=== PATIENT | female | born 1955 | race Caucasian/White ===

== ENCOUNTER 2017-05-26 20:52 | Emergency (ER) | payer OTHER ==
--- NOTE | 2017-05-26 21:47 | ERNOTE ---
Date of Service: 05/26/17 Time Seen by Provider: 05/26/17 21:41 Stated Complaint: COUGH. SORE RIBS. Presenting Symptoms:: cough, other - body aches, malaise Source: patient Immunizations: IMMUNIZATION HX Immunizations Up to Date Yes History of Influenza Vaccine Yes Allergies/Adverse Reactions: Allergies No Known Allergies Allergy (Unverified 05/26/17 21:15) Home Medications: HOME MEDICATIONS Thyroid,Pork [[place] Thyroid] 120 mg PO DAILY 05/26/17 [Last Taken Unknown] - History of Present Ilness Narrative: Generally feeling ill, with complaints of body aches, coughing, sinus congestion x 3 days; without fevers or chills. Denies N/V/D, or dizziness. Has been using Tylenol twice per day. Date (Duration): 05/26/17 Time (Timing): 22:00 Timing: constant Severity: moderate Frequency/Possible Cause: Reports: no prior episodes Modifying Factors - Improves: Reports: nothing Modifying Factors - Worsens: Reports: nothing Review of Systems - Review of Systems Constitutional: Present: See HPI EYE: Present: no symptoms reported ENT: Present: See HPI Respiratory: Present: See HPI Cardiology: Present: no symptoms reported Gastrointestinal/Abdominal: Present: no symptoms reported Genitourinary: Present: no symptoms reported Musculoskeletal: Present: no symptoms reported Skin: Present: no symptoms reported Neurological: Present: no symptoms reported Endocrine: Present: no symptoms reported Hematologic/Lymphatic: Present: no symptoms reported Psych: Present: no symptoms reported - Patient's Past Medical History Patient History - Medical: Hypothyroidism Patient History - Cardiac/Respiratory: No pertinent hx Patient History - Surgical Procedures: Appendectomy, Hysterectomy Patient History - Other: None - Social History Living Situations: home Smoking Status: Never smoker Patient requests Smoking Cessation Consult: No Initiate information on Smoking Cessation: No Alcohol Use: none Drug Use: none - Immunizations Immunizations Up to Date: Yes History of Influenza Vaccine: Yes Physical Exam - Physical Exam General Appearance: Present: no apparent distress Head Exam: Present: normal inspection Eye Exam: Normal inspection: bilateral, PERRL: bilateral, EOMI: bilateral Ears, Nose, Throat: Present: normal ENT inspection Neck: Present: normal inspection Respiratory: Present: no respiratory distress Cardiovascular/Chest: Present: regular rate, rhythm Gastrointestinal/Abdominal: Present: nontender Back Exam: Present: normal inspection Extremity Exam: Present: normal inspection Neurological Exam: Present: alert, oriented, 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 Vital Signs: Vital Signs 05/26/17 21:11 Temperature 36 C L Pulse Rate 92 Respiratory 18 Rate Blood Pressure 146/78 O2 Sat by Pulse 98 Oximetry - Progress/Reassessment Chief Complaint: Upper Respiratory Symptoms Progress:: Improved Progress Note-Subjective: 05/26/17 22:04 Given NS, ketorlac 15 mg IV and Tylenol 1 gram po. Departure Clinical Impression: Viral syndrome - Departure Disposition: Home self-care Condition: Good Instructions: Rehydration, Adult, Viral Respiratory Infection, [id number] Print Language: Kinyarwanda Referrals: Malia Casey REGISTERED NURSE NURSERY [Primary Care Provider] -
[2017-05-26] MEDS ORDERED: NORMAL SALINE 1,000 ML IV ONE (21:56)
[2017-05-26] MEDS ORDERED: KETOROLAC TROMETHAMINE 30 MG/ML VIAL IV ONE (21:56)
[2017-05-26] MEDS ORDERED: ACETAMINOPHEN 500 MG TABLET PO ONE (21:56)
[2017-05-26] MEDS ORDERED: KETOROLAC TROMETHAMINE 30 MG/ML VIAL ONE (22:13)
[2017-05-26 23:01] VITALS: BP 110/43
== END 2017-05-26 23:08 | disposition home or self-care (01) ==
LOC: ER 20:52
DX: B34.9 Viral infection, unspecified (principal)

== ENCOUNTER 2018-11-18 14:54 | Inpatient (IN) ==
[2018-11-18] MEDS ORDERED: MORPHINE SULFATE 4 MG/ML SYRG IV ONE ×2 (15:08→18:33)
[2018-11-18] MEDS ORDERED: NORMAL SALINE 1,000 ML IV ONE ×2 (15:08→16:50)
[2018-11-18] MEDS ORDERED: PROCHLORPERAZINE EDISYLATE 5 MG/ML VIAL IV ONE (15:09)
[2018-11-18] MEDS ORDERED: diphenhydrAMINE HCL 50 MG/ML VIAL IV ONE (15:09)
[2018-11-18] MEDS ORDERED: DIATRIZOATE MEGLUMINE, SODIUM 30 ML BTL PO ONE (15:32)
[2018-11-18 15:37] LABS: Hematocrit 48.6 % (37.0-47.0); Hemoglobin 16.4 gm/dL (12.5-16.0); Mean Cell Volume 88.4 fl (78-100); Mean Corpuscular Hemoglobin 29.8 pg (27-31); Mean Corpuscular Hgb Conc 33.7 g/dl (32-36); Mean Platelet Volume 10.8 fl (8-12.5); Neutrophil # 11.9 K/mm3 (1.3-6.0); Neutrophil % 80.2 % (42-75.0); Platelet Count 338 K/mm3 (150-450); Red Cell Distribution Width 12.5 % (11.5-14.0); White Blood Count 14.9 K/mm3 (4.0-10.5)
--- NOTE | 2018-11-18 15:41 | ERNOTE ---
Abdominal HPI - Narrative Date of Service: 11/18/18 - General Chief Complaint: Abdominal Pain Time Seen by Provider: 11/18/18 15:06 Source: patient Exam Limitations: no limitations - Immun/Allergies/Home Medications Immunizatons: IMMUNIZATION HX Immunizations Up to Date Yes History of Influenza Vaccine Yes Allergies/Adverse Reactions: Allergies No Known Allergies Allergy (Verified 11/18/18 15:05) Home Medications: HOME MEDICATIONS Thyroid,Pork [[place] Thyroid] 120 mg PO DAILY 05/26/17 [Last Taken Unknown] - History of Present Illness Narrative: Patient presents to the ED for abdominal pain. This pain started last night and has been persistent since. No CP or SOB. Has never had anything like this before. Pain starts in her mid abdomen and radiates outward. Vomited 6 times since last night. No fever. No diarrhea. Has not seen anyone else for this. Nothing makes it better or worse. Timing: constant, other - fluctuating intensity Quality: severe Activities at Onset: none Modifying Factors - (Improves): Present: other - nothing Modifying Factors - (Worsens): Present: other - nothing Associated Symptoms: Present: nausea, vomiting. Absent: chest pain, diarrhea- gross blood, diarrhea-mucous, fever/chills, heartburn, shortness of breath Prior Abdominal Problems: Absent: similar symptoms Prior Treatment: Absent: recently seen, currently on antibiotics Review of Systems - Review of Systems Constitutional: Absent: fever EYE: Present: no symptoms reported ENT: Absent: sore throat Respiratory: Absent: shortness of breath Cardiology: Absent: chest pain Gastrointestinal/Abdominal: Present: abdominal pain Genitourinary: Absent: dysuria All Other Systems: All systems neg except as marked Medical History (Updated 11/18/18 @ 15:41 by Mahendra Saldivar MD) History of ovarian cancer Hypothyroidism Surgical History: Surgical History (Updated 11/18/18 @ 15:05 by Radha Rivera RN) History of partial hysterectomy Social History: (Last Reviewed 11/18/18 @ 15:40 by Mahendra Saldivar MD) Tobacco: Smoking Status: Never smoker Alcohol: alcohol intake: current Alcohol type: beer alcohol intake frequency: a few times a month Substance Use: substance use type: does not use Physical Exam - Physical Exam General Appearance: Present: alert, no apparent distress Head Exam: Present: normal inspection, no evidence of injury Eye Exam: Normal inspection: bilateral, PERRL: bilateral Ears, Nose, Throat: Present: normal ENT inspection Neck: Present: normal inspection Respiratory: Present: no respiratory distress, normal breath sounds, no accessory muscle use, lungs clear Cardiovascular/Chest: Present: regular rate, rhythm, normal peripheral pulses Gastrointestinal/Abdominal: Present: normal bowel sounds, nondistended, soft, other - Moderate mid abdominal tenderness, no clear mass or peritoneal signs Back Exam: Absent: CVA tenderness (R), CVA tenderness (L) Extremity Exam: Present: normal inspection Neurological Exam: Present: alert, no motor/sensory deficits Skin Exam: Present: normal color, warm/dry Progress - Results and Orders Patient's Lab Results:: I have reviewed the patient's lab results. - Vital Signs Patient's Vital Signs:: I have reviewed the patient's vital signs. Vital Signs: Vital Signs 11/18/18 15:03 Temperature 35.7 C L Pulse Rate 83 Respiratory Rate 12 Blood Pressure 136/82 O2 Sat by Pulse Oximetry 98 - CT/Ultrasound CT/Ultrasound Narrative: I reviewed the official radiology report for the CT scan. - Progress/Reassessment Chief Complaint: Abdominal Pain Progress Note-Subjective: 11/18/18 18:48 NG ordered. A post placement x-ray will be reviewed when available as is nursing protocol. I discussed the case with Dr Huang who will admit and with Dr Narvaez who will consult. I discussed this with the patient and she understands and is agreeable. I have reviewd all diagnostic images and reports of all studies obtained today., Departure Clinical Impression: Abdominal pain, SBO (small bowel obstruction) - Departure Disposition: Still a patient Condition: Stable Referrals: Malia Casey, [employer] [Primary Care Provider] -
[2018-11-18 15:49] LABS: Anion Gap 16.1 mmol/L (6.8-13.8); BUN/Creatinine Ratio 22.7 (9.0-21.6); Bilirubin, Total 0.6 mg/dL (0.0-1.1); Ca. Corrected For Albumin 9.3 mg/dL (8.4-10.2); Calcium * 9.6 mg/dL (7.9-10.9); Carbon Dioxide 26.6 mmol/L (24-32.6); Potassium 3.7 mmol/L (3.4-4.6); Total Protein 7.4 gm/dL (6.2-8.2)
[2018-11-18 17:54] LABS: Urine Appearance Clear (CLEAR); Urine Bilirubin Negative (NEGATIVE); Urine Color Yellow; Urine Ketone 5 mg/dL (NEGATIVE); Urine Nitrite Negative (NEGATIVE); Urine Protein Negative (NEGATIVE); Urine Specific Gravity 1.005 SP.GR. (1.005-1.010); Urine Urobilinogen Normal (NORMAL); Urine pH 6.5 pH (5.0-7.0)
[2018-11-18 17:55] LABS: Urine Bacteria None Seen; Urine Blood 25 /ul (NEGATIVE); Urine RBC 0-5 /hpf (0-5); Urine WBC 0-5 /hpf (0-5)
[2018-11-18] MEDS ORDERED: ONDANSETRON HCL/PF 2 MG/ML VIAL IV PRN (18:58)
[2018-11-18] MEDS ORDERED: PHENOL 180 SPRAY BTL MM PRN (18:58)
--- NOTE | 2018-11-18 20:11 | CONS ---
- Reason for consultation (1) SBO (small bowel obstruction) Date of Service: 11/18/18 HPI - General Source: patient, RN/MD, RN notes reviewed Exam Limitations: no limitations - History of Present Illness Initial Comments: Last night she started getting crampy abdominal pain at 8 or 9:00 PM. The pain continued overnight and she began vomiting today. She is vomited undigested food first followed by brown and then bilious material. The pain comes as cramps and is central abdominal. Between cramps there is no discomfort. She states she moved her bowels normally yesterday but has had no bowel movement or flatus today. She generally moves her bowels every 2 or 3 days. She had a normal colonoscopy perhaps 2 years ago at [facility]. Her surgical history is remarkable for exploratory laparotomy 47 years ago with removal of an ovarian cancer. She then went to the [facility] for a reexploration and lymph node dissection. That apparently went well and the tests were all negative. About 27 years ago she had an episode of small bowel obstruction from adhesions. This was done in [place]. She was in the hospital with a nasogastric tube for about 2 weeks. Subsequent to that she has had operation for tubal ligation. In retrospect she had a similar episode to this several years ago. She thought she had some kind of flu or food poisoning and it got better after several days. Timing/Duration: 24 hours, intermittent Severity: moderate Modifying Factors - (Improves): Reports: immobilization Allergies/Adverse Reactions: Allergies No Known Allergies Allergy (Verified 11/18/18 15:05) Home Medications: Home Medications Medication Instructions Recorded Last Taken Thyroid,Pork [[place] Thyroid] 120 mg PO DAILY 05/26/17 Unknown Medications - Medications Current Medications: Current Medications Sodium Chloride (Sodium Chloride 0.9%) 1,000 mls @ 200 mls/hr IV .Q5H ONE Stop: 11/18/18 21:49 Last Admin: 11/18/18 18:56 Dose: 200 mls/hr Documented by: Ondansetron HCl (Zofran) 4 mg IV Q4H PRN PRN Reason: Nausea Stop: 12/18/18 18:59 Last Admin: 11/18/18 19:02 Dose: 4 mg Documented by: Review of Systems - Review of Systems Generalized/Overall Review: Absent: Chills, Fever EENTM: Absent: No Symptoms Reported Respiratory: Present: No Symptoms Reported. Absent: Cough, Shortness of Breath Cardiac: Present: No Symptoms Reported. Absent: Chest Pain Abdominal: Present: Other - Intermittent crampy abdominal pain and vomiting. Genitourinary: Present: No Symptoms Reported Musculoskeletal: Present: No Symptoms Reported Neurological: Present: No Symptoms Reported Skin: Present: No Symptoms Reported Misc: All systems neg except as marked Physical Examination - Exam Vital Signs: Vital Signs - Last Taken Temp 35.7 C L 11/18/18 15:03 Pulse 73 11/18/18 17:40 Resp 16 11/18/18 17:40 BP 140/75 11/18/18 17:40 Pulse Ox 95 11/18/18 17:40 O2 Oxygen Delivery Method Room Air Comprehensive Narative: 11/18/18 20:06 She is alert oriented and cooperative. She is in no acute distress and answers questions easily and appropriately. Constitutional: Present: Alert, Oriented x3, Cooperative, Well nourished, Mild distress ENT Exam: Present: normal ENT inspection, other - Nasogastric tube Eye Exam: bilateral eye: normal inspection Neck: Present: full range of motion, normal inspection Breasts: Present: Exam deferred Respiratory: Present: no respiratory distress Cardiovascular/Chest: Present: regular rate, rhythm Abdomen: Present: Normal bowel sounds, soft, nondistended, no rebound tenderness, other - She is mildly tender in the mid abdomen but there is no percussion or rebound tenderness. She has healed midline incision skirting to the left of the umbilicus. No hernia. 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, normal cerebellar test, no motor/sensory deficits Eye contact: Present: cooperative, good eye contact, normal speech Thoughts: Present: normal thought pattern - Results and Findings: Lab/Microbiology results last 24 hrs: Abnormal/Pending Laboratory Last 24 HRS 11/18/18 11/18/18 11/18/18 17:40 15:28 15:28 WBC 14.9 H RBC 5.50 H Hgb 16.4 H Hct 48.6 H Immature Gran # (Auto) 0.04 H Neutrophils % 80.2 H Lymphocytes % 15.3 L Neutrophils # 11.9 H Sodium 143 H Plasma Sodium 143 H Anion Gap 16.1 H BUN/Creatinine Ratio 22.7 H Random Glucose 124 H ALT 12 L Urine Blood [address] scan report and images reviewed. There is distended proximal small bowel, stretch of small bowel with fecal material, and then more collapsed distal small bowel. The colon is decompressed. There is fluid in the abdomen. - Assessments/Findings (1) SBO (small bowel obstruction) Diagnosis(s): This appears to be small bowel obstruction from adhesions. The CT picture is complex and suggests that this may have a chronic component. Surgery in this setting is likely to be very difficult and every attempt should be made to manage this nonoperatively RECOMMEND: The nasogastric tube was advanced. Will allow ice chips. Repeat x-rays and labs have been ordered for the a.m. Will encourage ambulation. Will reexamine in a.m. Problem: Acute
[2018-11-18] MEDS: HYDROmorphone HCL 1 MG/ML DISP.SYRIN IV PRN (23:03)
[2018-11-18] MEDS: POTASSIUM CHLORIDE 20 MEQ in DEXTROSE 5%-0.5 NORMAL SALINE 990 ML IV SCH (23:24)
[2018-11-19] MEDS: POTASSIUM CHLORIDE 20 MEQ in DEXTROSE 5%-0.5 NORMAL SALINE 990 ML IV SCH ×3 (05:13→20:39)
[2018-11-19 06:18] LABS: Anion Gap 9.9 mmol/L (6.8-13.8); BUN/Creatinine Ratio 23.4 (9.0-21.6); Calcium * 8.6 mg/dL (7.9-10.9); Potassium 3.9 mmol/L (3.4-4.6)
[2018-11-19 06:23] LABS: Hematocrit 43.5 % (37.0-47.0); Hemoglobin 14.3 gm/dL (12.5-16.0); Mean Cell Volume 89.9 fl (78-100); Mean Corpuscular Hemoglobin 29.5 pg (27-31); Mean Corpuscular Hgb Conc 32.9 g/dl (32-36); Mean Platelet Volume 10.8 fl (8-12.5); Neutrophil # 9.9 K/mm3 (1.3-6.0); Platelet Count 292 K/mm3 (150-450); Red Blood Count 4.84 M/mm3 (4.2-5.4); Red Cell Distribution Width 12.8 % (11.5-14.0); White Blood Count 13.4 K/mm3 (4.0-10.5)
[2018-11-19] MEDS ORDERED: ACETAMINOPHEN 500 MG TABLET PO ONE (07:12)
--- NOTE | 2018-11-19 07:18 | PN ---
Subjective - Date and Time Seen Date: 11/19/18 Time: 07:14 Subjective Narrative: "I feel better" still occasional crampy pain. No flatus or bowel movement. Headache Objective - Review of Systems Generalized/Overall Review: Denies: Chills, Fever EENTM: Reports: Throat Pain - From NG, Other - Has a headache without associated neurologic symptoms Respiratory: Reports: No Symptoms Reported Cardiac: Reports: No Symptoms Reported Abdominal: Reports: Other - Crampy abdominal discomfort but "better" Genitourinary Symptoms: Reports: No Symptoms Reported Musculoskeletal Complaints: Reports: No Symptoms Reported Neurological: Reports: Headache Skin: Reports: No Symptoms Reported - Vitals Vitals: Last Vital Signs Temp 37.1 C 11/19/18 06:30 Pulse 65 11/19/18 06:30 Resp 16 11/19/18 06:30 BP 101/62 11/19/18 06:30 Pulse Ox 93 11/19/18 06:30 - Abnormal Lab Findings Abnormal Lab Findings: Abnormal Lab Results 11/18/18 11/18/18 11/18/18 Range/Units 15:28 15:28 17:40 WBC 14.9 H (4.0-10.5) K/mm3 RBC 5.50 H (4.2-5.4) M/mm3 Hgb 16.4 H (12.5-16.0) gm/dL Hct 48.6 H (37.0-47.0) % Immature Gran # (Auto) 0.04 H (0.000-0.0310) K/mm3 Neutrophils % 80.2 H (42-75.0) % Lymphocytes % 15.3 L (20-51) % Neutrophils # 11.9 H (1.3-6.0) K/mm3 Sodium 143 H (132-142) mmol/L Plasma Sodium 143 H (130-142) mmol/L Anion Gap 16.1 H (6.8-13.8) mmol/L BUN/Creatinine Ratio 22.7 H (9.0-21.6) Random Glucose 124 H (70-110) mg/dL ALT 12 L (19-67) U/L Urine Blood 25 H (NEGATIVE) /ul 11/19/18 11/19/18 Range/Units 05:40 05:40 WBC 13.4 H (4.0-10.5) K/mm3 RBC (4.2-5.4) M/mm3 Hgb (12.5-16.0) gm/dL Hct (37.0-47.0) % Immature Gran # (Auto) 0.04 H (0.000-0.0310) K/mm3 Neutrophils % (42-75.0) % Lymphocytes % (20-51) % Neutrophils # 9.9 H (1.3-6.0) K/mm3 Sodium (132-142) mmol/L Plasma Sodium (130-142) mmol/L Anion Gap (6.8-13.8) mmol/L BUN/Creatinine Ratio 23.4 H (9.0-21.6) Random Glucose 140 H (70-110) mg/dL ALT (19-67) U/L Urine Blood (NEGATIVE) /ul - Exam Constitutional: Present: Alert, Oriented x3, No distress, Other - Sleeping but wakes easily ENT Exam: Present: normal ENT inspection, other - NG Neck: Present: full range of motion, normal inspection Respiratory: Present: no respiratory distress Cardiovascular/Chest: Present: regular rate, rhythm Abdomen: Present: Normal bowel sounds, soft, nondistended, other - Direct tenderness in the left lower quadrant but no rebound or percussion tenderness /Rectal: Present: Exam deferred Extremity: Present: normal range of motion, normal inspection Skin Exam: Present: normal color, warm/dry 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 Tylenol for headache. She will have repeat abdominal x-rays this morning. Will examine serially Encourage ambulation - Problems/Diagnosis (1) SBO (small bowel obstruction) Problem: Acute
--- NOTE | 2018-11-19 08:37 | HP ---
Chief Complaint - Chief Complaint Date of Service: 11/19/18 Time of Service: 08:08 Chief Complaint: Abdominal pain x1 day History of Present Illness: 63-year-old female with a past medical history of hypothyroidism and ovarian cancer presents with complaints of diffuse abdominal pain for 1 day associated with nausea and vomiting. Her symptoms progressively worsened and she presented to the emergency department. CT abdomen and pelvis was positive for small bowel obstruction. He was admitted for further management. Medical History (Updated 11/19/18 @ 08:36 by Ching Sullivan MD) History of ovarian cancer Hypothyroidism Surgical History: Surgical History (Updated 11/18/18 @ 19:44 by Any Wiley RN) H/O tubal ligation History of exploratory laparotomy History of partial hysterectomy Social History: (Last Updated 11/18/18 @ 20:41 by Denise Ramos RN) Social History: Marital status: household members: spouse parent marital status: current occupational status: employed current occupation: Nurse @ [employer] Tobacco: Smoking Status: Never smoker Alcohol: alcohol intake: current Alcohol type: beer alcohol intake frequency: a few times a month Substance Use: substance use type: does not use Dietary Habits: well-balanced diet: daily or most days caffeine: Yes Cuca/Sabianist: cuca/shinto: Shinto Cuca Personal Safety: do you feel safe at home: Yes victim of physical abuse: No victim of emotional abuse: No victim of sexual abuse: No would you like helpful sources: No Review Of Systems (GEN) - Review of Systems Generalized/Overall Review: Absent: Chills, Fever Respiratory: Absent: Shortness of Breath Cardiac: Absent: Chest Pain Abdominal: Present: Nausea, Vomiting, Abdominal Pain - With palpation Neurological: Present: Headache Misc: All systems neg except as marked Immunizations: IMMUNIZATION HX Immunizations Up to Date Yes History of Influenza Vaccine Yes Allergies/Adverse Reactions: Allergies Allergy/AdvReac Type Severity Reaction Status Date / Time No Known Allergies Allergy Verified 11/18/18 20:36 Home Medications: HOME MEDICATIONS Thyroid,Pork [[place] Thyroid] 120 mg PO DAILY 05/26/17 [Last Taken Unknown] Magnesium Oxide [Magnesium] 400 mg PO DAILY 11/18/18 [Last Taken Unknown] Selenium 200 mcg PO DAILY 11/18/18 [Last Taken Unknown] Vitamin E 400 unit PO DAILY 11/18/18 [Last Taken Unknown] Exam - Exam Vital Signs: Vital Signs - Last Taken Temp 37.1 C 11/19/18 07:40 Pulse 65 11/19/18 07:40 Resp 20 11/19/18 07:40 BP 101/62 11/19/18 07:40 Pulse Ox 93 11/19/18 07:40 Constitutional: Present: Alert, Cooperative, Well developed, Well nourished, No distress, Middle aged ENT Exam: Present: hearing grossly normal Eye Exam: bilateral eye: normal inspection, EOMI Neck: Present: non-tender, trachea midline. Absent: lymphadenopathy (R), lymphadenopathy (L) Back Exam: Present: normal inspection, no CVA tenderness, no vertebral tenderness Respiratory: Present: lungs clear, normal breath sounds, no respiratory distress, no accessory muscle use, No wheezing. Absent: crackles, rhonchi Cardiovascular/Chest: Present: normal peripheral pulses, regular rate, rhythm, no murmur Peripheral Pulses: dorsalis-pedis (R): 2+, dorsalis-pedis (L): 2+ Abdomen: Present: Normal bowel sounds, soft, tender - To deep palpation. Absent: rebound tenderness Extremity: Present: no pedal edema Skin Exam: Present: normal color, warm/dry Neurologic: Present: alert, normal mood/affect Appearance: Present: appropriate appearance, appropriate insight Eye contact: Present: cooperative, good eye contact Thoughts: Present: normal thought pattern, normal mood /affect Diagnostic Studies: Abnormal Lab Results 11/18/18 11/18/18 11/18/18 Range/Units 15:28 15:28 17:40 WBC 14.9 H (4.0-10.5) K/mm3 RBC 5.50 H (4.2-5.4) M/mm3 Hgb 16.4 H (12.5-16.0) gm/dL Hct 48.6 H (37.0-47.0) % Immature Gran # (Auto) 0.04 H (0.000-0.0310) K/mm3 Neutrophils % 80.2 H (42-75.0) % Lymphocytes % 15.3 L (20-51) % Neutrophils # 11.9 H (1.3-6.0) K/mm3 Sodium 143 H (132-142) mmol/L Plasma Sodium 143 H (130-142) mmol/L Anion Gap 16.1 H (6.8-13.8) mmol/L BUN/Creatinine Ratio 22.7 H (9.0-21.6) Random Glucose 124 H (70-110) mg/dL ALT 12 L (19-67) U/L Urine Blood 25 H (NEGATIVE) /ul 11/19/18 11/19/18 Range/Units 05:40 05:40 WBC 13.4 H (4.0-10.5) K/mm3 RBC (4.2-5.4) M/mm3 Hgb (12.5-16.0) gm/dL Hct (37.0-47.0) % Immature Gran # (Auto) 0.04 H (0.000-0.0310) K/mm3 Neutrophils % (42-75.0) % Lymphocytes % (20-51) % Neutrophils # 9.9 H (1.3-6.0) K/mm3 Sodium (132-142) mmol/L Plasma Sodium (130-142) mmol/L Anion Gap (6.8-13.8) mmol/L BUN/Creatinine Ratio 23.4 H (9.0-21.6) Random Glucose 140 H (70-110) mg/dL ALT (19-67) U/L Urine Blood (NEGATIVE) /ul Laboratory Results WBC 13.4 K/mm3 (4.0-10.5) H 11/19/18 05:40 RBC 4.84 M/mm3 (4.2-5.4) 11/19/18 05:40 Hgb 14.3 gm/dL (12.5-16.0) 11/19/18 05:40 Hct 43.5 % (37.0-47.0) 11/19/18 05:40 MCV 89.9 fl (78-100) 11/19/18 05:40 MCH 29.5 pg (27-31) 11/19/18 05:40 MCHC 32.9 g/dl (32-36) 11/19/18 05:40 RDW 12.8 % (11.5-14.0) 11/19/18 05:40 Plt Count 292 K/mm3 (150-450) 11/19/18 05:40 MPV 10.8 fl (8-12.5) 11/19/18 05:40 Immature Gran % (Auto) 0.30 % (0.001-0.429) 11/19/18 05:40 Immature Gran # (Auto) 0.04 K/mm3 (0.000-0.0310) H 11/19/18 05:40 74.0 % (42-75.0) 11/19/18 05:40 20.3 % (20-51) 11/19/18 05:40 5.0 % (0.0-9) 11/19/18 05:40 0.3 % (0.0-3.0) 11/19/18 05:40 0.1 % (0.0-1.0) 11/19/18 05:40 Nucleated RBC % 0.0 k/mm3 (0-1) 11/19/18 05:40 9.9 K/mm3 (1.3-6.0) H 11/19/18 05:40 2.72 k/mm3 (1.5-3.5) 11/19/18 05:40 0.7 k/mm3 (0.0-1.0) 11/19/18 05:40 0.0 k/mm3 (0.0-0.7) 11/19/18 05:40 Absolute Basophils 0.0 k/mm3 (0.0-0.1) 11/19/18 05:40 Sodium 141 mmol/L (132-142) 11/19/18 05:40 142 mmol/L (130-142) 11/19/18 05:40 Potassium 3.9 mmol/L (3.4-4.6) 11/19/18 05:40 Chloride 106 mmol/L (97-106) 11/19/18 05:40 Carbon Dioxide 29.0 mmol/L (24-32.6) 11/19/18 05:40 9.9 mmol/L (6.8-13.8) 11/19/18 05:40 BUN 18 mg/dL (3-23) 11/19/18 05:40 0.77 mg/dL (0.4-1.4) 11/19/18 05:40 Est GFR (Non-Af Amer) 80 mL/min (60-130) 11/19/18 05:40 23.4 (9.0-21.6) H 11/19/18 05:40 140 mg/dL (70-110) H 11/19/18 05:40 Calcium 8.6 mg/dL (7.9-10.9) 11/19/18 05:40 Calcium Adj for Albumin 9.3 mg/dL (8.4-10.2) 11/18/18 15:28 0.6 mg/dL (0.0-1.1) 11/18/18 15:28 AST 14 U/L (0-48) 11/18/18 15:28 ALT 12 U/L (19-67) L 11/18/18 15:28 92 U/L (50-170) 11/18/18 15:28 7.4 gm/dL (6.2-8.2) 11/18/18 15:28 4.0 gm/dl (3.4-5.0) 11/18/18 15:28 93 U/L (73-393) 11/18/18 15:28 Yellow 11/18/18 17:40 Clear (CLEAR) 11/18/18 17:40 6.5 pH (5.0-7.0) 11/18/18 17:40 Ur Specific [place] 1.005 SP.GR. (1.005-1.010) 11/18/18 17:40 Negative mg/dL (NEGATIVE) 11/18/18 17:40 Negative mg/dL (NEGATIVE) 11/18/18 17:40 5 mg/dL (NEGATIVE) 11/18/18 17:40 25 /ul (NEGATIVE) H 11/18/18 17:40 Negative (NEGATIVE) 11/18/18 17:40 Negative mg/dl (NEGATIVE) 11/18/18 17:40 Normal EU/dl (NORMAL) 11/18/18 17:40 Ur Leukocyte Esterase Negative /ul (NEGATIVE) 11/18/18 17:40 0-5 /hpf (0-5) 11/18/18 17:40 0-5 /hpf (0-5) 11/18/18 17:40 Ur Epithelial Cells 0-5 /hpf (0-5) 11/18/18 17:40 None seen (NONE) 11/18/18 17:40 No culture indicated 11/18/18 17:40 Assessment/Plan - Narrative Narrative: 63-year-old female with a past medical history of hypothyroidism and ovarian cancer presents with complaints of diffuse abdominal pain for 1 day associated with nausea and vomiting. Her symptoms progressively worsened and she presented to the emergency department. CT abdomen and pelvis was positive for small bowel obstruction. NG tube was placed and she was admitted for further management. Today she denies abdominal pain but she does have pain with palpation of her abdomen. Denies nausea and vomiting today. She also complained of a headache that has been relieved with Tylenol. Surgeon, Dr. Narvaez is on board. Continue with pain management, n.p.o., ice chips as needed if tolerated, and she will get an abdominal x-ray today. - Assessment/Plan (1) SBO (small bowel obstruction) Problem: Acute (2) Abdominal pain Problem: Acute Qualifiers: Abdominal location: generalized Qualified Code(s): R10.84 - Generalized abdominal pain (3) Headache Problem: Acute (4) Hypothyroid Problem: Chronic Qualifiers: Hypothyroidism type: unspecified Qualified Code(s): E03.9 - Hypothyroidism, unspecified
--- NOTE | 2018-11-19 17:21 | PN ---
Dictated Progress Note - Date and Time Seen: Date: 11/19/18 Time: 17:20 - 2nd visit - Progress Note Narrative: Vital Signs - Last Taken Temp 37.1 C 11/19/18 14:17 Pulse 76 11/19/18 14:17 Resp 14 11/19/18 14:17 BP 99/69 11/19/18 14:17 Pulse Ox 94 11/19/18 14:17 Abnormal/Pending Laboratory Last 24 HRS 11/19/18 11/19/18 11/18/18 05:40 05:40 17:40 WBC 13.4 H Immature Gran # (Auto) 0.04 H Neutrophils # 9.9 H BUN/Creatinine Ratio 23.4 H Random Glucose 140 H Urine Blood 25 H VS normal. Better than yesterday. Still LLQ tenderness, no peritoneal signs 400ml per NG Walked well. Did pass some gas. Will continue NG and IVF's with repeat xray in AM
[2018-11-20] MEDS: HYDROmorphone HCL 1 MG/ML DISP.SYRIN IV PRN (01:05)
[2018-11-20] MEDS: POTASSIUM CHLORIDE 20 MEQ in DEXTROSE 5%-0.5 NORMAL SALINE 990 ML IV SCH ×2 (03:24→10:19)
[2018-11-20 05:26] LABS: Hematocrit 40.4 % (37.0-47.0); Mean Cell Volume 92.4 fl (78-100); Mean Corpuscular Hemoglobin 29.7 pg (27-31); Mean Corpuscular Hgb Conc 32.2 g/dl (32-36); Mean Platelet Volume 10.7 fl (8-12.5); Neutrophil # 5.6 K/mm3 (1.3-6.0); Neutrophil % 56.3 % (42-75.0); Platelet Count 234 K/mm3 (150-450); Red Blood Count 4.37 M/mm3 (4.2-5.4); Red Cell Distribution Width 12.5 % (11.5-14.0); White Blood Count 9.9 K/mm3 (4.0-10.5)
[2018-11-20 05:47] LABS: Albumin * 2.8 gm/dl (3.4-5.0); Anion Gap 9.3 mmol/L (6.8-13.8); BUN/Creatinine Ratio 12.5 (9.0-21.6); Bilirubin, Total 0.4 mg/dL (0.0-1.1); Ca. Corrected For Albumin 8.9 mg/dL (8.4-10.2); Calcium * 8.3 mg/dL (7.9-10.9); Carbon Dioxide 27.8 mmol/L (24-32.6); Potassium 4.1 mmol/L (3.4-4.6); Total Protein 5.4 gm/dL (6.2-8.2)
--- NOTE | 2018-11-20 08:18 | PN ---
Dictated Progress Note - Date and Time Seen: Date: 11/20/18 Time: 08:17 - Progress Note Narrative: Vital Signs - Last Taken Temp 36.7 C 11/20/18 06:38 Pulse 63 11/20/18 06:38 Resp 12 11/20/18 06:38 BP 117/65 11/20/18 06:38 Pulse Ox 94 11/20/18 06:38 Abnormal/Pending Laboratory Last 24 HRS 11/20/18 11/20/18 05:20 05:20 Immature Gran % (Auto) 0.50 H Immature Gran # (Auto) 0.05 H Chloride 108 H Random Glucose 115 H ALT 8 L Total Protein 5.4 L Albumin 2.8 L VS normal. WBC down to normal. Passed gas and has only "twinges" in abdomen. Contrast in colon on xray and gas pattern improved--reading pending. Only 275ml out of NG. Will trial clamp NG with clear liquids and meds.
[2018-11-20] MEDS ORDERED: BISACODYL 5 MG TABLET.DR PO ONE (08:22)
[2018-11-20] MEDS: ENOXAPARIN SODIUM 40 MG/0.4 ML SYRG SC SCH (09:46)
--- NOTE | 2018-11-20 13:15 | PN ---
Subjective - Date and Time Seen Date: 11/20/18 Time: 09:22 Subjective Narrative: She states she continues to feel better every day. She is tolerating a clear liquid diet with no abdominal pain. She was passing gas yesterday, no bowel movement yet. She states she had a bowel movement prior to admission. Denies abdominal pain, nausea or vomiting. She had 1 dose of Dilaudid early this morning due to discomfort in her throat from NG tube Objective - Review of Systems Generalized/Overall Review: Denies: Chills, Fever Respiratory: Denies: Shortness of Breath Cardiac: Denies: Chest Pain Abdominal: Denies: Nausea, Vomiting, Abdominal Pain Misc: All systems neg except as marked - Vitals Vitals: Last Vital Signs Temp 36.8 C 11/20/18 10:08 Pulse 74 11/20/18 10:08 Resp 16 11/20/18 10:08 BP 118/54 11/20/18 10:08 Pulse Ox 97 11/20/18 10:08 - Abnormal Lab Findings Abnormal Lab Findings: Abnormal Lab Results 11/20/18 11/20/18 Range/Units 05:20 05:20 Immature Gran % (Auto) 0.50 H (0.001-0.429) % Immature Gran # (Auto) 0.05 H (0.000-0.0310) K/mm3 Chloride 108 H (97-106) mmol/L Random Glucose 115 H (70-110) mg/dL ALT 8 L (19-67) U/L Total Protein 5.4 L (6.2-8.2) gm/dL Albumin 2.8 L (3.4-5.0) gm/dl - Exam Constitutional: Present: Alert, Cooperative, Well developed, Well nourished, No distress ENT Exam: Present: hearing grossly normal Neck: Absent: lymphadenopathy (R), lymphadenopathy (L) Respiratory: Present: lungs clear, no accessory muscle use, No wheezing. Absent: crackles Cardiovascular/Chest: Present: no edema Abdomen: Present: Normal bowel sounds, soft, tender - Mild with deep palpation, diffuse Extremity: Present: normal range of motion, non-tender, no pedal edema Skin Exam: Present: normal color, warm/dry Neurologic: Present: alert, normal mood/affect Appearance: Present: appropriate appearance, appropriate insight Eye contact: Present: cooperative, good eye contact Thoughts: Present: normal mood /affect Assessment/Plan Plan Narrative: 63-year-old female with a past medical history of hypothyroidism and ovarian cancer presents with complaints of diffuse abdominal pain for 1 day associated with nausea and vomiting. Her symptoms progressively worsened and she presented to the emergency department. CT abdomen and pelvis was positive for small bowel obstruction. She continues to feel better every day. Per Dr. Narvaez, her diet was advance to a clear liquid diet, NG tube has been clamped. She is tolerating the diet well with no abdominal pain. - Problems/Diagnosis (1) SBO (small bowel obstruction) Problem: Acute (2) Abdominal pain Problem: Resolved Qualifiers: Abdominal location: generalized Qualified Code(s): R10.84 - Generalized abdominal pain (3) Headache Problem: Resolved (4) Hypothyroid Problem: Chronic Qualifiers: Hypothyroidism type: unspecified Qualified Code(s): E03.9 - Hypothyroidism, unspecified Narrative: We do not carry [place] Thyroid if she is not getting her thyroid medication at this time. Advised that she can have a family member or friend bring her medication in if she would like.
--- NOTE | 2018-11-20 13:30 | PN ---
Dictated Progress Note - Date and Time Seen: Date: 11/20/18 Time: 13:29 - Progress Note Narrative: Vital Signs - Last Taken Temp 36.8 C 11/20/18 10:08 Pulse 74 11/20/18 10:08 Resp 16 11/20/18 10:08 BP 118/54 11/20/18 10:08 Pulse Ox 97 11/20/18 10:08 Abnormal/Pending Laboratory Last 24 HRS 11/20/18 11/20/18 05:20 05:20 Immature Gran % (Auto) 0.50 H Immature Gran # (Auto) 0.05 H Chloride 108 H Random Glucose 115 H ALT 8 L Total Protein 5.4 L Albumin 2.8 L VS normal. No pain. Has tolerated 2 clear liquid trays. Several liquid BMS since soft stool this AM. Will D/C NG, saline lock IV, advance to low residue diet.
[2018-11-21] MEDS ORDERED: BISACODYL 5 MG TABLET.DR PO ONE (08:19)
[2018-11-21] MEDS: ENOXAPARIN SODIUM 40 MG/0.4 ML SYRG SC SCH (10:33)
--- NOTE | 2018-11-21 15:11 | DS ---
(1) SBO (small bowel obstruction) Problem: Acute Description of Stay: She was admitted and kept at n.p.o. status except for ice chips with IV fluids. A nasogastric tube was placed. Initially she had a large NG output which gradually decreased. Her abdominal pain lessened steadily. She eventually passed gas and moved her bowels. She tolerated a trial of NG tube clamping with clear liquids. The nasogastric tube was removed and she was started on a low residue diet which she tolerated well. She continued to move her bowels and stated that her initial abdominal discomfort was resolved. Serial abdominal x- rays demonstrated resolution of the obstructive process. She will be discharged home to resume her usual thyroid medication. She is to maintain a low residue/low fiber diet. She will arrange follow-up with Malia MCDONALD her usual PCP. Procedures Performed: none Results and Findings: Lab Pending Results 11/18/18 15:28: WBC 14.9 H, RBC 5.50 H, Hgb 16.4 H, Hct 48.6 H, MCV 88.4, MCH 29.8, MCHC 33.7, RDW 12.5, Plt Count 338, MPV 10.8, Immature Gran % (Auto) 0.30, Immature Gran # (Auto) 0.04 H, Neutrophils % 80.2 H, Lymphocytes % 15.3 L, Monocytes % 3.9, Eosinophils % 0.1, Basophils % 0.2, Nucleated RBC % 0.0, Neutro phils # 11.9 H, Lymphocytes # 2.28, Monocytes # 0.6, Eosinophils # 0.0, Absolute Basophils 0.0 11/18/18 15:28: Sodium 143 H, Plasma Sodium 143 H, Potassium 3.7, Chloride 104, Carbon Dioxide 26.6, Anion Gap 16.1 H, BUN 20, Creatinine 0.88, Est GFR (Non-Af Amer) 69, BUN/Creatinine Ratio 22.7 H, Random Glucose 124 H, Calcium 9.6, Calcium Adj for Albumin 9.3, Total Bilirubin 0.6, AST 14, ALT 12 L, Alkaline Phosphatase 92, Total Protein 7.4, Albumin 4.0, Lipase 93 11/18/18 17:40: Urine Color Yellow, Urine Appearance Clear, Urine pH 6.5, Ur Specific [place] 1.005, Urine Protein Negative, Urine Glucose (UA) Negative, Urine Ketones 5, Urine Blood 25 H, Urine Nitrate Negative, Urine Bilirubin Negative, Urine Urobilinogen Normal, Ur Leukocyte Esterase Negative, Urine RBC 0-5, Urine WBC 0-5, Ur Epithelial Cells 0-5, Urine Bacteria None seen, Urine Culture Comments No culture indicated 11/19/18 05:40: WBC 13.4 H, RBC 4.84, Hgb 14.3, Hct 43.5, MCV 89.9, MCH 29.5, MCHC 32.9, RDW 12.8, Plt Count 292, MPV 10.8, Immature Gran % (Auto) 0.30, Immature Gran # (Auto) 0.04 H, Neutrophils % 74.0, Lymphocytes % 20.3, Monocytes % 5.0, Eosinophils % 0.3, Basophils % 0.1, Nucleated RBC % 0.0, Neutrophils # 9.9 H, Lymphocytes # 2.72, Monocytes # 0.7, Eosinophils # 0.0, Absolute Basophils 0.0 11/19/18 05:40: Sodium 141, Plasma Sodium 142, Potassium 3.9, Chloride 106, Carbon Dioxide 29.0, Anion Gap 9.9, BUN 18, Creatinine 0.77, Est GFR (Non-Af Amer) 80, BUN/Creatinine Ratio 23.4 H, Random Glucose 140 H, Calcium 8.6 11/20/18 05:20: WBC 9.9 D, RBC 4.37, Hgb 13.0, Hct 40.4, MCV 92.4, MCH 29.7, MCHC 32.2, RDW 12.5, Plt Count 234, MPV 10.7, Immature Gran % (Auto) 0.50 H, Immature Gran # (Auto) 0.05 H, Neutrophils % 56.3, Lymphocytes % 35.0, Monocytes % 6.0, Eosinophils % 1.8, Basophils % 0.4, Nucleated RBC % 0.0, Neutrophils # 5.6, Lymphocytes # 3.45, Monocytes # 0.6, Eosinophils # 0.2, Absolute Basophils 0.0 11/20/18 05:20: Sodium 141, Plasma Sodium 141, Potassium 4.1, Chloride 108 H, Carbon Dioxide 27.8, Anion Gap 9.3, BUN 8 D, Creatinine 0.64, Est GFR (Non-Af Amer) 100 D, BUN/Creatinine Ratio 12.5, Random Glucose 115 H, Calcium 8.3, Calcium Adj for Albumin 8.9, Total Bilirubin 0.4, AST 14, ALT 8 L, Alkaline Phosphatase 65, Total Protein 5.4 L, Albumin 2.8 L Abdominal x-ray on 11/21/2018 shows resolution of the obstructive pattern Discharge Location: Home Disposition: Home self-care Condition: Good Discharge Activity: Activity as tolerated Discharge Diet: Low Fiber Referrals: Malia Casey, [place] [Primary Care Provider] - Complete Home Medications List: Complete Home Medication List: Thyroid,Pork [[place] Thyroid] 120 mg PO DAILY 05/26/17 Magnesium Oxide [Magnesium] 400 mg PO DAILY 11/18/18 Selenium 200 mcg PO DAILY 11/18/18 Vitamin E 400 unit PO DAILY 11/18/18
[2018-11-21 15:34] VITALS: BP 113/79
--- NOTE | 2018-11-21 15:37 | PN ---
Subjective - Date and Time Seen Date: 11/21/18 Time: 09:53 Objective - Vitals Vitals: Last Vital Signs Temp 37.1 C 11/21/18 15:33 Pulse 73 11/21/18 15:33 Resp 18 11/21/18 15:33 BP 113/79 11/21/18 15:33 Pulse Ox 97 11/21/18 15:33 Assessment/Plan - Problems/Diagnosis (1) SBO (small bowel obstruction) Problem: Acute (2) Abdominal pain Problem: Resolved Qualifiers: Abdominal location: generalized Qualified Code(s): R10.84 - Generalized abdominal pain (3) Headache Problem: Resolved (4) Hypothyroid Problem: Chronic Qualifiers: Hypothyroidism type: unspecified Qualified Code(s): E03.9 - Hypothyroidism, unspecified
--- NOTE | 2018-11-21 15:47 | DS ---
(1) SBO (small bowel obstruction) Problem: Resolved (2) Abdominal pain Problem: Resolved Qualifiers: Abdominal location: generalized Qualified Code(s): R10.84 - Generalized abdominal pain (3) Headache Problem: Resolved (4) Hypothyroid Problem: Chronic Qualifiers: Hypothyroidism type: unspecified Qualified Code(s): E03.9 - Hypothyroidism, unspecified Description of Stay: 63-year-old female with a past medical history of hypothyroidism and ovarian cancer presents with complaints of diffuse abdominal pain for 1 day associated with nausea and vomiting. Her symptoms progressively worsened and she presented to the emergency department. CT abdomen and pelvis was positive for small bowel obstruction. NG tube was placed She did well and pain was well managed. The NG tube was removed and her diet was slowly advanced. She tolerated it well with no vomiting or abdominal pain. Serial abdominal exams showed improvement in gas pattern. Dr. Narvaez, surgeon, followed her case with me and is ok with her going home. She is stable to be discharged home today. Procedures Performed: none Results and Findings: Lab Pending Results 11/18/18 15:28: WBC 14.9 H, RBC 5.50 H, Hgb 16.4 H, Hct 48.6 H, MCV 88.4, MCH 29.8, MCHC 33.7, RDW 12.5, Plt Count 338, MPV 10.8, Immature Gran % (Auto) 0.30, Immature Gran # (Auto) 0.04 H, Neutrophils % 80.2 H, Lymphocytes % 15.3 L, Monocytes % 3.9, Eosinophils % 0.1, Basophils % 0.2, Nucleated RBC % 0.0, Neutrophils # 11.9 H, Lymphocytes # 2.28, Monocytes # 0.6, Eosinophils # 0.0, Absolute Basophils 0.0 11/18/18 15:28: Sodium 143 H, Plasma Sodium 143 H, Potassium 3.7, Chloride 104, Carbon Dioxide 26.6, Anion Gap 16.1 H, BUN 20, Creatinine 0.88, Est GFR (Non-Af Amer) 69, BUN/Creatinine Ratio 22.7 H, Random Glucose 124 H, Calcium 9.6, Calcium Adj for Albumin 9.3, Total Bilirubin 0.6, AST 14, ALT 12 L, Alkaline Phosphatase 92, Total Protein 7.4, Albumin 4.0, Lipase 93 11/18/18 17:40: Urine Color Yellow, Urine Appearance Clear, Urine pH 6.5, Ur Specific [place] 1.005, Urine Protein Negative, Urine Glucose (UA) Negative, Urine Ketones 5, Urine Blood 25 H, Urine Nitrate Negative, Urine Bilirubin Negative, Urine Urobilinogen Normal, Ur Leukocyte Esterase Negative, Urine RBC 0-5, Urine WBC 0-5, Ur Epithelial Cells 0-5, Urine Bacteria None seen, Urine Culture Comments No culture indicated 11/19/18 05:40: WBC 13.4 H, RBC 4.84, Hgb 14.3, Hct 43.5, MCV 89.9, MCH 29.5, MCHC 32.9, RDW 12.8, Plt Count 292, MPV 10.8, Immature Gran % (Auto) 0.30, Immature Gran # (Auto) 0.04 H, Neutrophils % 74.0, Lymphocytes % 20.3, Monocytes % 5.0, Eosinophils % 0.3, Basophils % 0.1, Nucleated RBC % 0.0, Neutrophils # 9.9 H, Lymphocytes # 2.72, Monocytes # 0.7, Eosinophils # 0.0, Absolute Basophils 0.0 11/19/18 05:40: Sodium 141, Plasma Sodium 142, Potassium 3.9, Chloride 106, Carbon Dioxide 29.0, Anion Gap 9.9, BUN 18, Creatinine 0.77, Est GFR (Non-Af Amer) 80, BUN/Creatinine Ratio 23.4 H, Random Glucose 140 H, Calcium 8.6 11/20/18 05:20: WBC 9.9 D, RBC 4.37, Hgb 13.0, Hct 40.4, MCV 92.4, MCH 29.7, MCHC 32.2, RDW 12.5, Plt Count 234, MPV 10.7, Immature Gran % (Auto) 0.50 H, Immature Gran # (Auto) 0.05 H, Neutrophils % 56.3, Lymphocytes % 35.0, Monocytes % 6.0, Eosinophils % 1.8, Basophils % 0.4, Nucleated RBC % 0.0, Neutrophils # 5.6, Lymphocytes # 3.45, Monocytes # 0.6, Eosinophils # 0.2, Absolute Basophils 0.0 11/20/18 05:20: Sodium 141, Plasma Sodium 141, Potassium 4.1, Chloride 108 H, Carbon Dioxide 27.8, Anion Gap 9.3, BUN 8 D, Creatinine 0.64, Est GFR (Non-Af Amer) 100 D, BUN/Creatinine Ratio 12.5, Random Glucose 115 H, Calcium 8.3, Calcium Adj for Albumin 8.9, Total Bilirubin 0.4, AST 14, ALT 8 L, Alkaline Phosphatase 65, Total Protein 5.4 L, Albumin 2.8 L Discharge Location: Home Disposition: Home self-care Condition: Good Discharge Activity: Activity as tolerated Discharge Diet: Low Fiber Referrals: Malia Casey, [employer] [Primary Care Provider] - Problem Oriented Discharge Instructions to Patient/Family: Small Bowel Obstruction, [id number] Additional Patient Instructions (free text): Follow up with Malia Casey on 11-26-18 at 10:30 am. arrive at 10:15 for check in. Complete Home Medications List: Complete Home Medication List: Thyroid,Pork [[place] Thyroid] 120 mg PO DAILY 05/26/17 Magnesium Oxide [Magnesium] 400 mg PO DAILY 11/18/18 Selenium 200 mcg PO DAILY 11/18/18 Vitamin E 400 unit PO DAILY 11/18/18
== END 2018-11-21 16:05 | disposition home or self-care (01) | DRG 390 ==
LOC: MS 14:54 → ER 14:54 → OBSVTOIN 18:48 → MS 20:18
PROVIDERS: ADMIT Internal Medicine; ATTEND Internal Medicine
CPT/HCPCS: 36415; 71010; 71045; 74019; 74020; 74177; 80048; 80053; 81001; 83690; 85025; 96361; 96374; 96375; 99285; J2405; Q9963; Q9967